=== PATIENT | female | born 1975 | race Hispanic/Latino ===

== ENCOUNTER 2017-02-12 23:48 | Emergency (ER) | payer OTHER ==
[~2017-02-12] VITALS: Ht 160 cm; Wt 65.8 kg
[~2017-02-12 23:48] MED LIST: AMOXIL500 MG PO; BACTRIM DS 8001 TAB PO; CLEOCIN HCL150 MG PO; MOTRIN800 MG PO; NAPROSYN 500 M500 MG PO; NORFLEX100 MG PO; PERCOCET 325 MG1 TA2 PO
--- NOTE | 2017-02-13 00:06 | ED CARDIAC/CP/PALPITATIONS ---
History of Present Illness General Chief Complaint: Chest Pain Stated Complaint: "CP [id number]" Source: patient, family Exam Limitations: no limitations Vital Signs & Intake/Output Vital Signs & Intake/Output Vital Signs Date Time Temp Pulse Resp B/P B/P Pulse O2 O2 Flow FiO2 Mean Ox Delivery Rate 02/13 0004 99 Room Air 02/12 2355 97.6 68 18 129/74 99 Room Air ED Intake and Output 02/13 0000 02/12 1200 Intake Total Output Total Balance Patient 145 lb Weight Allergies Coded Allergies: MDX - Miconazole (From MONISTAT 7) (Intermediate, RASH 06/04/14) Reconcile Medications CLINDAMYCIN HCL (Cleocin HCl) 150 MG CAPSULE 150 MG PO Q6 CELLULITS Ibuprofen (Motrin) 800 MG TAB 1 TAB PO TID PRN PAIN Lorazepam (Ativan) 0.5 MG TABLET 1 TAB PO BIDP PRN anxiety four...[id number] Naproxen (Naprosyn) 250 MG TABLET 1 TAB PO BID PRN PAIN Orphenadrine Citrate (Norflex) [address] 1 TAB PO BID PRN MUSCLE SPASMS OXYCODONE HCL/ACETAMINOPHEN (Percocet 5-325 MG Tablet) 325 MG/5 MG TAB 1 TAB PO Q6P PRN PAIN MODERATE TO SEVERE Triage Note: PT TO ED C/O CENTER CHEST PAIN THAT GOES ACROSS UPPER CHEST FOR 15 MINS. HAS BEEN CONSTANT. PAIN WAS A 10/10, IS NOW DOWN TO 6/10. DENIES NAUSEA. DENIES SOB. PAIN STARTED WHEN SHE WAS IN BED. SKIM WARM, PUT VASELINE ON EARLIER TODAY[facility] DENIES ANY EXTRA LIFTING OR EXERTION. STATES THIS IS THE SECOND EPISODE LIKE THIS. HAD STRESS TEST THROUGH DR WILKINS, RESULTS NORMAL. DR ORNELAS AT BEDSIDE TO [facility] PT Triage Nurses Notes Reviewed? yes Onset: Abrupt Duration: minute(s): Timing: single episode today Quality/Severity: moderate Location: central Radiation: no radiation Activities at Onset: sleep Prior Chest Pain/Card Workup: PATIENT HAS HAD PRIOR EPISODE APPROXIMATELY ONE MONTH AGO. pATIENT ALSO A STRESS TEST 3 WEEKS AGO WHICH WAS NEGATIVE. Modifying Factors: Improves With: rest. Nitro Today/Relief: no nitro taken today Aspirin Today: no aspirin today Associated Symptoms: PALPITATIONS : No Patient currently breastfeeds: No HPI: 5-year-old woman in prior good health presents with chest pain across her chest associated with a pounding heartbeat for approximately 15 minutes prior to presentation. She states that she had a similar episode approximately one month ago she was at work. She has been worked up by Dr. Wilkins, her quality system manager, who did a stress test which was reportedly negative. The stress test was done 3 weeks ago. She states that the pain was 10 out of 10 with very strong palpitations. Presently, she is comfortable and chest pain-free. She is otherwise well and has no other concerns Past History Travel History Traveled to [place] past 21 day No Medical History Any Pertinent Medical History? see below for history Neurological: NONE EENT: NONE Cardiovascular: NONE Respiratory: NONE Gastrointestinal: NONE Hepatic: NONE Renal: NONE Musculoskeletal: NONE Psychiatric: NONE Endocrine: NONE Blood Disorders: NONE Cancer(s): NONE RIGGING SLINGER/Reproductive: NONE History of MRSA: Yes History of VRE: No History of CDIFF: No Influenza Vaccine: 06/05/14 Tetanus Vaccine: 01/01/15 Surgical History Surgical History: none Psychosocial History Who do you live with Patient/Self Services at Home None What is your primary language Kazakh Tobacco Use: Never used ETOH Use: denies use Illicit Drug Use: denies illicit drug use Family History Family History, If Any: Relation not specified for: *No pertinent family history Hx Contributory? No Review of Systems Review of Systems Constitutional: Reports: no symptoms. EENTM: Reports: no symptoms. Respiratory: Reports: no symptoms. Cardiovascular: Reports: no symptoms. GI: Reports: no symptoms. Genitourinary: Reports: no symptoms. Musculoskeletal: Reports: no symptoms. Skin: Reports: no symptoms. Neurological/Psychological: Reports: no symptoms. Hematologic/Endocrine: Reports: no symptoms. Immunologic/Allergic: Reports: no symptoms. All Other Systems: Reviewed and Negative Physical Exam Physical Exam General Appearance: well developed/nourished, mild distress Head: atraumatic, normal appearance Eyes: Bilateral: normal appearance. Ears, Nose, Throat: normal pharynx, normal ENT inspection Neck: normal inspection, supple, full range of motion Respiratory: normal breath sounds, chest non-tender, no respiratory distress, quiet respiration, lungs clear Cardiovascular: regular rate/rhythm Gastrointestinal: normal bowel sounds, soft, non-tender, no organomegaly Back: normal inspection Extremities: normal inspection Neurologic/Psych: no motor/sensory deficits, awake, alert, oriented x 3 Skin: intact, normal color, warm/dry Core Measures ACS in differential dx? No Severe Sepsis Present: No Septic Shock Present: No Progress Differential Diagnosis: UNSTABLE ANGINA AND MYOCARDIAL INFARCTIONS LESS LIKELY GIVEN THE AND NEED A STRESS TEST 3 WEEKS AGO. oTHER DIAGNOSES ON THE DIFFERENTIAL INCLUDE pe, COSTOCHONDRITIS, PANIC DISORDER. Plan of Care: Orders Procedure Date/time Status TROPONIN LEVEL 02/12 2351 Complete HUMAN BETA HCG SCREEN 02/12 2351 Complete D-DIMER 02/12 2351 Complete COMPREHENSIVE METABOLIC PANEL 02/12 2351 Complete CBC WITHOUT DIFFERENTIAL 02/12 2351 Complete EKG 02/12 2350 Active Laboratory Tests 02/13/17 0008: Anion Gap 9, Estimated GFR > 60, BUN/Creatinine Ratio 20.0, Glucose 100 H, Calcium 8.8, Total Bilirubin 1.0, AST 47 H, ALT 46, Alkaline Phosphatase 57, Troponin I < 0.01, Total Protein 6.6, Albumin 4.0, Globulin 2.6, Albumin/ Globulin Ratio 1.5, Total Beta HCG NEGATIVE, D-Dimer High Sensitivty < 200, CBC w Diff NO MAN DIFF REQ, RBC 4.30, MCV 88.5, MCH 29.7, RDW 14.5, MPV 8.8, Gran % 48.3, Lymphocytes % 37.5, Monocytes % 11.5 H, Eosinophils % 2.3, Basophils % 0.4, Absolute Granulocytes 2.2, Absolute Lymphocytes 1.7, Absolute Monocytes 0.5 , Absolute Eosinophils 0.1, Absolute Basophils 0, PUBS MCHC 33.5 Diagnostic Imaging: Viewed by Me: Radiology Read. Discussed w/RAD: Radiology Read. CXR Impression: no acute abnormality, no infiltrates, normal size heart, normal mediastinum Initial ED EKG: normal axis, normal intervals, normal p-waves, normal QRS complex, normal sinus rhythm, NO CHANGE FROM PRIOR Comments: PATIENT: DOMINIQUE SIMON PRESENT AGE: 41 PATIENT ACCOUNT NO: [id number] : 76 LOCATION: [facility] ORDERING PHYSICIAN: LORETTA ORNELAS MD SERVICE DATE: 02/12/17 EXAM TYPE: RAD - XRY-PORTABLE CHEST XRAY EXAMINATION: XR PORTABLE CHEST CLINICAL INFORMATION: Chest pain COMPARISON: 01/01/2015 TECHNIQUE: Portable frontal view of the chest was obtained. FINDINGS: Lung volumes are symmetric. No focal consolidation is seen. No evidence of pneumothorax, pleural effusion, or pulmonary edema. The cardiomediastinal contour is unremarkable. Healed upper left rib fractures are noted. Plate and screw fixation of the left clavicle is also identified. No acute osseous findings are seen. IMPRESSION: No acute cardiopulmonary findings. DICTATED BY: MADONNA CLEANING MD DATE/TIME DICTATED:02/13/1736 NET FRONT END DEVELOPER:[email or web address] DATE/TIME TRANSCRIBED:02/13/1736 CONFIDENTIAL, DO NOT COPY WITHOUT APPROPRIATE AUTHORIZATION. <Electronically signed in Other Vendor System> SIGNED BY: MADONNA CLEANING MD 02/13/17 0041 Departure Departure Disposition: HOME OR SELF CARE Condition: Stable Clinical Impression Primary Impression: Chest pain Ref[facility]: [facility] ([facility]Family) Departure Forms: Customer Survey General Discharge Information Prescriptions: Current Visit Scripts Lorazepam (Ativan) 1 TAB PO BIDP PRN anxiety #4 TAB four...[id number] Comments 02/13/17, 1:29am... pt is comfortable, negative labs, dimer, troponin, cxr... pt feels that the ativan improved her symptoms. She is safe for discharge, with a negative stress test 3 weeks ago. Close follow up advised. Critical Care Note Critical Care Note Critical Care Time: non-applicable
[2017-02-13 00:23] LABS: ABSOLUTE BASOPHIL COUNT 0 /CUMM (0.0-0.2); ABSOLUTE EOSINOPHIL COUNT 0.1 /CUMM (0.0-0.7); ABSOLUTE GRANULOCYTE CT 2.2 /CUMM (1.4-6.5); ABSOLUTE LYMPH COUNT 1.7 /CUMM (1.2-3.4); ABSOLUTE MONOCYTE COUNT 0.5 /CUMM (0.10-0.60); BASOPHIL % 0.4 % (0.0-2.0); EOSINOPHIL % 2.3 % (0-5); GRANULOCYTE % 48.3 % (42.2-75.2); HEMATOCRIT 38.1 % (37-47); MEAN CORPUSCULAR HGB 29.7 PG (27.0-31.0); MEAN CORPUSCULAR HGB CONC 33.5 G/DL (33.0-37.0); MEAN CORPUSCULAR VOLUME 88.5 FL (81.0-99.0); MEAN PLATELET VOLUME 8.8 FL (7.4-10.4); PLATELET COUNT 223 /CUMM (130-400); RBC DISTRIBUTION WIDTH 14.5 % (11.5-14.5); WHITE BLOOD CELL COUNT 4.6 /CUMM (4.8-10.8)
--- NOTE | 2017-02-13 00:41 | RADIOLOGY REPORT ---
EXAMINATION: XR PORTABLE CHEST CLINICAL INFORMATION: Chest pain COMPARISON: 01/01/2015 TECHNIQUE: Portable frontal view of the chest was obtained. FINDINGS: Lung volumes are symmetric. No focal consolidation is seen. No evidence of pneumothorax, pleural effusion, or pulmonary edema. The cardiomediastinal contour is unremarkable. Healed upper left rib fractures are noted. Plate and screw fixation of the left clavicle is also identified. No acute osseous findings are seen. IMPRESSION: No acute cardiopulmonary findings.
[2017-02-13] MEDS ORDERED: ATIVAN0.5 M1 PO (01:23)
[2017-02-13 01:31] VITALS: BP 104/62
== END 2017-02-13 01:32 ==
LOC: ERH 23:48
PROVIDERS: Pediatrics
DX: R07.9 Chest pain, unspecified (principal)
CPT/HCPCS: 93005; 93010